=== PATIENT | female | born 1940 | race Caucasian/White ===

== ENCOUNTER 2017-11-26 12:18 | Emergency (ER) | payer MEDICARE, OTHER ==
[2017-11-26] MEDS: LIDOCAINE 1%/EPI 30 ML INJ INJ (13:17)
[2017-11-26] MEDS: DIPHTH/TET/ACEL PERTUSS (ADULT) 0.5 ML VIAL IM* (15:17)
== END 2017-11-26 15:15 | disposition home or self-care (01) ==
LOC: FTE 12:18
DX: S01.81XA Laceration without foreign body of other part of head, initial encounter (principal); I10 Essential (primary) hypertension; W18.39XA Other fall on same level, initial encounter; Y92.9 Unspecified place or not applicable
CPT/HCPCS: 12011; 90715; 99283-25

== ENCOUNTER 2018-12-05 07:26 | Emergency (ER) | payer MEDICARE, BC | END 2018-12-05 08:54 | disposition home or self-care (01) | LOC: FTE 07:26 | DX: S51.811A Laceration without foreign body of right forearm, initial encounter (principal); I10 Essential (primary) hypertension; X58.XXXA Exposure to other specified factors, initial encounter; Y92.89 Other specified places as the place of occurrence of the external cause | CPT/HCPCS: 12001; 99282-25 ==